=== PATIENT | female | born 1975 | race Caucasian/White ===

== ENCOUNTER 2017-03-22 08:06 | Emergency (ER) | payer OTHER ==
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
[2017-03-22 08:50] LABS: BASOPHILS % 0.8 (0.0-1.5); EOSINOPHILS % 3.6 % (0.0-6.8); MEAN CORPUSCULAR HEMOGLOBIN 26.5 pg (28.0-34.0); MEAN CORPUSCULAR VOLUME 79.1 fl (80.0-100.0); MONOCYTES % 2.6 % (0.0-11.0); NEUTROPHILS # 3.9 # k/uL (1.4-7.7)
[2017-03-22] MEDS: ASPIRIN 81 MG CHEW TAB PO ONE (08:58)
[2017-03-22 09:08] LABS: eGFR (African) > 60; eGFR (Non-African) > 60
--- NOTE | 2017-03-22 09:22 | ED Physician Documentation ---
General Adult - HISTORIAN Historian: patient - HPI Stated Complaint: left shoulder pain Chief Complaint: Shoulder Injury/ Pain Onset: other (She had a fall 4 years ago and she has had "issues" with the pain on that shoulder since. She states this started to increase at Thanksgiving and then over the last 3 days she has noted increased pain and she had some mild nausea last night she does note that the pain "might" extend to the chest . She has increased pain with active elevation but states that when she holds the arm up once she has lifted the arm the pain is somewhat relieved. She has taken Asprin last night (with improvement of pain) althought not this am. Denies any jaw or neck pain. ) Timing: still present Severity: moderate Further Comments: yes (left shoulder/chest pain with mild nausea last night. No sick contacts) Last known Well Code/Unknown Code: Unknown - ROS CONST: sweating (last pm with nausea ). denies: fever, recent illness EYES/ENT: denies: problems with vision, sore throat CVS/RESP: chest pain. denies: shortness of breath, cough GI/: denies: abdominal pain MS/SKIN/LYMPH: denies: neck pain, rash NEURO/PSYCH: denies: headache, fainting, dizziness, tingling - PAST HX Past History: other (she has a history HTN with ) Other History: none Surgeries/Procedures: none Allergies/Adverse Reactions: Allergies Allergy/AdvReac Type Severity Reaction Status Date / Time Sulfa (Sulfonamide Allergy Verified 03/22/17 08:34 Antibiotics) Home Medications: Ambulatory Orders Medication Instructions Recorded Cyclobenzaprine HCl 10 mg PO BID PRN #20 tablet 03/22/17 Tramadol HCl [Ultram] 50 mg PO BID PRN #20 tablet 03/22/17 - SOCIAL HX Smoking History: non-smoker Alcohol Use: none Drug Use: none - FAMILY HX Family History: No - VITAL SIGNS Vital Signs: Vital Signs Temp Pulse Resp BP Pulse Ox 98.2 F 96 H 20 161/103 97 03/22/17 08:06 03/22/17 08:06 03/22/17 08:06 03/22/17 08:06 03/22/17 08:06 - REVIEWED ASSESSMENTS Nursing Assessment Reviewed: Yes Vitals Reviewed: Yes ED Results Lab/Radiology - Lab Results Lab Results: Lab Results 03/22/17 03/22/17 03/22/17 08:45 08:45 08:45 WBC 6.10 K/ul K/ul (4.00-12.00) RBC 4.78 M/ul M/ul (3.90-5.20) Hgb 12.6 g/dL g/dL (12.0-16.0) Hct 37.8 % % (34.5-46.5) MCV 79.1 fl L fl (80.0-100.0) MCH 26.5 pg L pg (28.0-34.0) MCHC 33.5 g/dL g/dL (30.0-36.0) RDW 13.3 % % (11.3-14.3) Plt Count 391 K/mm3 K/mm3 (130-400) Neut % (Auto) 63.6 % % (39.0-79.0) Lymph % (Auto) 28.4 % % (16.0-50.0) [place] % (Auto) 2.6 % % (0.0-11.0) Eos % (Auto) 3.6 % % (0.0-6.8) Baso % (Auto) 0.8 (0.0-1.5) Neut # (Auto) 3.9 # k/uL # k/uL (1.4-7.7) Lymph # (Auto) 1.7 # k/uL # k/uL (0.6-4.0) Highlands # (Auto) 0.2 # k/uL # k/uL (0.0-0.9) Eos # (Auto) 0.2 # k/uL # k/uL (0.0-0.6) Baso # (Auto) 0.0 # k/uL # k/uL (0.0-0.5) Reactive Lymphs % 0.9 % % (0.0-5.0) Reactive Lymphs # 0.1 # k/uL # k/uL (0.0-0.8) Sodium 139 mmol/L mmol/L (136-145) Potassium 4.1 mmol/L mmol/L (3.5-5.1) Chloride 103 mmol/L mmol/L (98-107) Carbon Dioxide 27 mmol/L mmol/L (22-30) BUN 8 mg/dL mg/dL (7-17) Creatinine 0.50 mg/dL L mg/dL (0.52-1.04) Estimated Creat Clear 246 Est GFR ( Amer) > 60 (60 - ) Est GFR (Non-Af Amer) > 60 (60 - ) Glucose 97 mg/dL mg/dL (74-106) Calcium 9.1 mg/dL mg/dL (8.4-10.2) Total Bilirubin 0.3 mg/dL mg/dL (0.2-1.3) AST 18 U/L U/L (15-46) ALT 33 U/L U/L (13-69) Alkaline Phosphatase 95 U/L U/L (38-126) Creatine Kinase 41 U/L U/L (30-135) CK-MB (CK-2) 0.8 ng/mL ng/mL (0.0-5.6) Troponin I < 0.03 ng/mL L ng/mL (0.03-0.06) Total Protein 7.6 g/dL g/dL (6.3-8.2) Albumin 4.1 g/dL g/dL (3.5-5.0) - Radiology Radiology Impressions: Examination: Plain film shoulder History: Discomfort Comparison exams: None provided Findings: 3 views of the shoulder demonstrate normal cortical margins. No evidence for fracture or dislocation. No soft tissue abnormality Impression: No acute osseous process. The wall the Electronically signed on Mar 22, 2017 9:40:19 AM ASSISTANT CORPORATE SECRETARY by: Jose Ayoub Impression should read: Impression: No acute osseous process. Addendum electronically signed by Jose Ayoub on March 22, 2017 9:40:50 AM ASSISTANT CORPORATE SECRETARY Examination: PA and lateral chest History: Evaluate lung land. Findings: PA lateral chest demonstrate a normal cardiac and mediastinal silhouette. No focal infiltrate. No blunting of the costophrenic margins. Osseous structures are appropriate for age. Impression: No acute pulmonary process. Electronically signed on Mar 22, 2017 9:41:29 AM ASSISTANT CORPORATE SECRETARY by: Jose Ayoub - Orders Orders: ED Orders Category Date Time Status Continuous EKG monitoring Q30M Care 03/22/17 08:29 Active Continuous Pulse Oximetry Q30M Care 03/22/17 08:[address] IV Lock 1T Care 03/22/17 08:29 Active CHEST 1 VIEW [RAD] Stat Exams 03/22/17 08:29 Ordered SHOULDER 2 VIEWS OR MORE [RAD] Stat Exams 03/22/17 Ordered CBC/PLATELET/DIFF Routine Lab 03/22/17 08:45 Completed CKMB Stat Lab 03/22/17 08:45 Completed CMP Routine Lab 03/22/17 08:45 Completed CREATINE KINASE Routine Lab 03/22/17 08:45 Completed TROPONIN I (cTnI) Stat Lab 03/22/17 08:45 Completed Aspirin Med 03/22/17 08:29 Discontinued 324 mg PO NOW ONE Oxygen Daily Oxygen 03/22/17 08:30 Ordered EKG WITH COMPARISON Stat Ther 03/22/17 08:29 Ordered General Adult Physical Exam - PHYSICAL EXAM GENERAL APPEARANCE: no distress EENT: eye inspection normal NECK: normal inspection CVS: reg rate & rhythm, heart sounds normal, equal pulses, no murmur ABDOMEN: soft, no organomegaly, normal bowel sounds SKIN: warm/dry, normal color EXTREMITIES: other (left shoulder: pain to palpation on shoulder and upper arm. Pulses + ROM painful active elevation. Cap refill +. No obvious visual injury Mild pain to palpation of left chest and lateral chest area ) NEURO: oriented X3, CN's nml as tested, motor nml, sensation nml, mood/affect nml Discharge Clincal Impression: Shoulder pain Qualifiers: Chronicity: chronic Laterality: left Qualified Code(s): M25.512 - Pain in left shoulder; G89.29 - Other chronic pain; G89.29 - Other chronic pain Prescriptions: Cyclobenzaprine HCl 10 mg PO BID PRN #20 tablet PRN Reason: Pain Or Temperature > 101 Tramadol HCl [Ultram] 50 mg PO BID PRN #20 tablet PRN Reason: Pain Referrals: Primary Doctor,No [Primary Care Provider] - 2 Days Comments: Follow up with PCP Return for any further chest pain Condition: Stable Disposition: 01 HOME, SELF-CARE Decision to Admit: NO Date of Decison to Admit: 03/22/17 Decision Time: 10:29
[2017-03-22] MEDS ORDERED: KETOROLAC TROMETHAMINE 30 MG/1ML VIAL IM ONE (09:35)
[2017-03-22] MEDS: KETOROLAC TROMETHAMINE 30 MG/1ML VIAL IVP ONE (09:50)
[2017-03-22] MEDS: ORPHENADRINE CITRATE 60 MG/2ML IM ONE (09:56)
[2017-03-22 10:54] VITALS: BP 122/68
--- NOTE | 2017-03-22 12:51 | Diagnostic Imaging Report ---
ANITHA KOENIG [facility] [address] [facility] [address] [place], [place]. [address] Report Submission Date: Mar 22, 2017 9:41:29 AM WINDOWS SYSTEMS ARCHITECT Patient Study Name: MARIXA VALLES Date: Mar 22, 2017 9:30:51 AM WINDOWS SYSTEMS ARCHITECT Modality Type: CR Gender: F Description: CHEST : 73 Institution: [facility] Physician: ANITHA KOENIG Examination: PA and lateral chest History: Evaluate lung land. Findings: PA lateral chest demonstrate a normal cardiac and mediastinal silhouette. No focal infiltrate. No blunting of the costophrenic margins. Osseous structures are appropriate for age. Impression: No acute pulmonary process. Electronically signed on Mar 22, 2017 9:41:29 AM WINDOWS SYSTEMS ARCHITECT by: Jose NICHOLE
--- NOTE | 2017-03-22 12:52 | Diagnostic Imaging Report ---
ANITHA KOENIG [facility] [address] [facility] [address] [place], [place]. [address] Report Submission Date: Mar 22, 2017 9:40:19 AM WELFARE ELIGIBILITY INTERVIEWER Patient Study Name: MARIXA VALLES Date: Mar 22, 2017 9:25:07 AM WELFARE ELIGIBILITY INTERVIEWER Modality Type: CR Gender: F Description: SHOULDER : 73 Institution: [facility] Physician: ANITHA KOENIG Examination: Plain film shoulder History: Discomfort Comparison exams: None provided Findings: 3 views of the shoulder demonstrate normal cortical margins. No evidence for fracture or dislocation. No soft tissue abnormality Impression: No acute osseous process. The wall the Electronically signed on Mar 22, 2017 9:40:19 AM WELFARE ELIGIBILITY INTERVIEWER by: Jose Ayoub Impression should read: Impression: No acute osseous process. Addendum electronically signed by Jose Ayoub on March 22, 2017 9:40:50 AM WELFARE ELIGIBILITY INTERVIEWER [facility]
== END 2017-03-22 10:10 | disposition home or self-care (01) ==
LOC: ED 08:06
DX: M25.512 Pain in left shoulder (principal); G89.29 Other chronic pain
CPT/HCPCS: 71020; 73030; 80053; 82550; 82553; 84484; 85025; J1885; J2360; 96372; 99283; S1016

== ENCOUNTER 2018-02-26 20:05 | Emergency (ER) | payer OTHER ==
[2018-02-26] MEDS ORDERED: ORPHENADRINE CITRATE 60 MG/2ML IM ONE (20:32)
[2018-02-26] MEDS ORDERED: KETOROLAC TROMETHAMINE 60 MG/2 ML VIAL IM ONE (20:32)
--- NOTE | 2018-02-26 20:46 | ED Physician Documentation ---
General Adult - HISTORIAN Historian: patient - HPI Stated Complaint: Chest discomfort Chief Complaint: General Adult Additional Information: Two days of burning, pressure chest pain at mid sternum after raking leaves. She feels similar discomfort in her back. She has had this pain several times stef 2 years. Has even had cardiac cath in the past which was negative and was told her symptoms were muscle pain. Today alone, she has take tylenol, ibuprofen, aspirin, and gaviscon w/o relief. No other modifying factors or associated events. - ROS CONST: no problems - PAST HX Past History: hypertension (stays about 140/90) Other History: none Allergies/Adverse Reactions: Allergies Allergy/AdvReac Type Severity Reaction Status Date / Time Sulfa (Sulfonamide Allergy Nausea/Vomi Verified 02/26/18 20:29 Antibiotics) ting sulfamethoxazole AdvReac Mild Nausea/Vomi Verified 02/26/18 20:29 [From Bactrim] ting trimethoprim [From Bactrim] AdvReac Mild Nausea/Vomi Verified 02/26/18 20:29 ting Home Medications: Ambulatory Orders Medication Instructions Recorded Amitriptyline HCl 25 mg PO PRN PRN 02/26/18 Cyclobenzaprine HCl [Flexeril] 10 mg PO HS #10 tablet 02/26/18 Ibuprofen 600 mg PO Q8 PRN #30 tablet 02/26/18 Lisinopril/Hydrochlorothiazide 1 each PO DAILY 02/26/18 [Zestoretic] - SOCIAL HX Smoking History: non-smoker - FAMILY HX Family History: Yes (no signif; GM with DM and NC in her 9-0's ) - VITAL SIGNS Vital Signs: Vital Signs Temp Pulse Resp BP Pulse Ox 97.6 F 82 16 169/98 98 02/26/18 20:05 02/26/18 20:05 02/26/18 20:05 02/26/18 20:05 02/26/18 20:05 - REVIEWED ASSESSMENTS Nursing Assessment Reviewed: Yes Vitals Reviewed: Yes Progress - Progress Progress: EKG: sinus rhythm, 82 BPM, no acute changes ED Results Lab/Radiology - Orders Orders: ED Orders Category Date Time Status Ketorolac Tromethamine [Toradol] Med 02/26/18 20:32 Once 60 mg IM NOW ONE Orphenadrine Citrate [Norflex] Med 11/12/18 20:32 Once 60 mg IM NOW ONE EKG WITH COMPARISON Stat Ther 02/26/18 20:15 Ordered General Adult Physical Exam - PHYSICAL EXAM GENERAL APPEARANCE: mild distress (concerned) EENT: eye inspection normal, ENT inspection normal NECK: normal inspection, supple, other (palpation left trap spasm reproduces all her pain) RESPIRATORY: no resp distress, breath sounds normal CVS: reg rate & rhythm, heart sounds normal ABDOMEN: soft, normal bowel sounds, no distension BACK: normal inspection, no CVA tenderness, other (no vertebra ltenderness) SKIN: warm/dry, normal color EXTREMITIES: non-tender, normal range of motion (gait and stance), no evidence of injury NEURO: CN's nml as tested, motor nml, sensation nml, cognition normal Discharge Clincal Impression: Strain of left trapezius muscle Qualifiers: Encounter type: initial encounter Qualified Code(s): S46.812A - Strain of other muscles, fascia and tendons at shoulder and upper arm level, left arm, initial encounter Prescriptions: Cyclobenzaprine HCl [Flexeril] 10 mg PO HS #10 tablet Ibuprofen 600 mg PO Q8 PRN #30 tablet PRN Reason: neck pain Referrals: Dee Ardon MD [Primary Care Provider] - 2 Days Additional Instructions: Ice or gentle heat to the sore area of your neck and shoulder for 30 minutes of each hour you are awake for 10 days. Follow this with rolling your shoulders and gentle stretching of your arms and neck. You can take 1000 mg of Tylenol every 8 hours if needed for discomfort. You can also take 600 mg of ibuprofen with food every 8 hours if needed for discomfort. The muscle relaxants will help reduce m[pain and help you sleep better. Condition: Good Disposition: 01 HOME, SELF-CARE Decision to Admit: NO Decision Time: 20:45
[2018-02-26 21:06] VITALS: BP 157/95
== END 2018-02-26 20:45 | disposition home or self-care (01) ==
LOC: ED 20:05
DX: S46.812A Strain of other muscles, fascia and tendons at shoulder and upper arm level, left arm, initial encounter (principal); Y93.H1 Activity, digging, shoveling and raking; Y92.017 Garden or yard in single-family (private) house as the place of occurrence of the external cause
CPT/HCPCS: 93005; J1885; J2360; 96372; 99283

== ENCOUNTER 2019-01-24 08:10 | Emergency (ER) | payer OTHER ==
[2019-01-24] MEDS ORDERED: NORMAL SALINE 1,000 ML IV.SOLN IV ONE (09:15)
[2019-01-24] MEDS ORDERED: MAG HYDROX/ALUMINUM HYD/SIMETH 30 ML UDC PO ONE (09:15)
[2019-01-24] MEDS ORDERED: ASPIRIN 81 MG CHEW TAB ONE (09:15)
[2019-01-31 13:27] LABS: APPEARANCE,URINE CLEAR (CLEAR); COLOR,URINE YELLOW (YELLOW)
[2019-01-31 13:28] LABS: OCCULT BLOOD,URINE NEGATIVE (NEGATIVE); URINE HCG NEGATIVE (NEGATIVE); UROBILINOGEN URINE 0.2 Eu (0.2-1.0)
[2019-01-31 13:31] LABS: BASOPHILS % 0.4 % (0.0-1.5); eGFR (Non-African) > 60
--- NOTE | 2019-02-18 12:58 | Diagnostic Imaging Report ---
ANITHA KOENIG [facility] [address] [facility] [address] [place], [place]. [address] Report Submission Date: Jan 24, 2019 9:20:07 AM CDT Patient Study Name: MARIXA VALLES Date: Jan 24, 2019 8:46:08 AM CDT Modality Type: DX Gender: F Description: ABD SERIES PA CHEST : 73 Institution: [facility] Physician: ANITHA KOENIG Exam: Abdominal obstruction series. History: Chest and abdominal pain. Lung land are well aerated without pietro consolidation or effusion. Heart and mediastinal contour are normal. No bony abnormalities are seen. Scattered loops of bowel gas in both large and small intestine is noted with a mild amount of retained fecal material seen in the colon. No organomegaly is seen. No renal or biliary calcifications are seen. No free air is identified. Impression: No pietro consolidation or effusion. Nonspecific bowel gas pattern. No free air. Electronically signed on Jan 24, 2019 9:20:07 AM CDT by: Jack NICHOLE
== END 2019-01-24 10:00 | disposition home or self-care (01) ==
LOC: ED 08:10
DX: R07.9 Chest pain, unspecified (principal)
CPT/HCPCS: 74018; 80053; 81002; 81025; 82553; 84484; 85025; 85610; 85730; 93005; 99283; 99284; A9270-GY; J7030; S1016